=== PATIENT | female | born 1950 | race Caucasian/White ===

== ENCOUNTER 2025-01-08 17:21 | Emergency (ER) | payer MEDICARE, OTHER, SELFPAY ==
[2025-01-08] VITALS (12 sets, daily range): BP systolic 114–161; BP diastolic 58–98; PULSE 70–158; RESP 12–24; TEMP 36.8–37.2; O2SAT 94–98; BMI 26.4
--- NOTE | 2025-01-08 17:33 | EKG12_ITS ---
Test Reason : PALPITATIONS Blood Pressure : */* mmHG Vent. Rate : 154 BPM Atrial Rate : * BPM P-R Int : * ms QRS Dur : 68 ms QT Int : 278 ms P-R-T Axes : * 45 48 degrees QTcB Int : 445 ms Critical Test Result: High HR Supraventricular tachycardia Nonspecific ST abnormality Abnormal ECG Confirmed by YUNIER LYNN, DERRICK ([id number]), writer editor KEV RAM ([id number] on 01/10/2025 11:33:58 AM Referred By: Confirmed By: DERRICK FAYE MD
--- NOTE | 2025-01-08 17:37 | EX.ED.DYSGE1 ---
HPI History of Present Illness Chief Complaint: Palpitations Informant: patient Narrative Narrative: Presents via private vehicle with palpitations 90 minutes ago. Reports was at [facility] felt symptoms she was sweaty. She moved here from [place] 2 weeks ago. No leg swelling or cramping. No chest pains no dyspnea. With denies lightheaded symptoms. Reports history of both SVT and A-fib in the past she had 3 ablations last time in 2012. She states she was never on blood thinners for her A-fib. She was previously on atenolol. Currently not taking any medications. No cough no recent vomiting or diarrhea no urinary symptoms. Reports been doing a lot of moving around. Denies history of blood clots. Reports history of CLL baseline white cells 11-12. Not currently on any treatment regimens. Prior similar symptoms: Yes PFSH PFS Medical History Afib CLL (chronic lymphocytic leukemia) Home Medications ?Medication ?Instructions ?Recorded ?Last Taken ?Type metoprolol succinate 25 mg 25 mg PO DAILY #30 tabs 01/08/25 Unknown Rx tablet,extended release 24 hr Allergy/AdvReac Type Severity Reaction Status Date / Time avocado Allergy flushing Verified 01/08/25 18:01 azithromycin Allergy Rash Verified 01/08/25 18:01 Influenza Virus Vaccines Allergy Hives Verified 01/08/25 17:24 (flu vaccine) latex Allergy Hives Verified 01/08/25 17:22 NSAIDS (Non-Steroidal Allergy palpitation Verified 01/08/25 18:01 Anti-Inflamma s soy Allergy Hives Verified 01/08/25 18:01 Histamine H2 Inhibitors AdvReac migraine Verified 01/08/25 18:01 lansoprazole AdvReac migraine Verified 01/08/25 18:01 prednisone AdvReac Other Verified 01/08/25 17:22 Proton Pump Inhibitors AdvReac migraines Verified 01/08/25 18:01 sotalol AdvReac depression, Verified 01/08/25 18:01 fatigue Social History Smoking Status: Never smoker ROS ROS ED Constitutional Constitutional ED: Denies chills, fever(s) or sweats ENT ENT ED: Denies sore throat Cardiovascular Cardiovascular: Reports palpitations and racing heartbeat; Denies chest pain or leg edema Respiratory/Chest Respiratory/Chest: Denies cough, dyspnea or dyspnea on exertion Gastrointestinal Gastrointestinal: Denies abdominal pain, diarrhea, nausea or vomiting Genitourinary Genitourinary ED: Denies dysuria, hematuria or urinary frequency Musculoskeletal Musculoskeletal: Denies back pain, extremity pain or neck pain Integumentary Denies rash or wounds Neurologic Neurologic: Denies headache(s), paresthesias or weakness EXAM Physical Exam Const Vital Signs: 01/08/25 17:22 01/08/25 17:39 01/08/25 17:40 Temperature 98.9 F Temperature Source Oral Pulse Rate 158 H 154 H 154 H Respiratory Rate 20 H 17 18 Blood Pressure 126/84 H 145/98 H Blood Pressure Mean 98 113 Pulse Ox 94 94 95 Oxygen Delivery Method Room Air 01/08/25 17:45 01/08/25 17:54 01/08/25 18:00 Temperature Temperature Source Pulse Rate 150 H 150 H 148 H Respiratory Rate 23 H 24 H 20 H Blood Pressure 153/90 H 161/90 H 127/77 H Blood Pressure Mean 105 109 93 Pulse Ox 95 95 95 Oxygen Delivery Method 01/08/25 18:15 01/08/25 18:30 01/08/25 18:45 Temperature Temperature Source Pulse Rate 138 H 71 70 Respiratory Rate 18 21 H 18 Blood Pressure 136/74 H 139/75 H 125/58 H Blood Pressure Mean 94 91 78 Pulse Ox 95 95 94 Oxygen Delivery Method 01/08/25 19:00 01/08/25 20:00 01/08/25 20:22 Temperature 98.2 F Temperature Source Pulse Rate 74 72 71 Respiratory Rate 18 18 12 Blood Pressure 114/74 150/68 H 149/75 H Blood Pressure Mean 87 95 99 Pulse Ox 96 96 98 Oxygen Delivery Method Room Air Room Air Positive well nourished and well developed General Appearance ED: well developed and NAD HEENT Reports moist mucous membranes normocephalic and atraumatic Eyes General Eye ED: Yes normal appearance of both eyes Neck full ROM Chest Wall Chest: Negative for tenderness Resp normal respiratory effort and normal air movement Effort and Inspection: symmetric chest movement; Negative for respiratory distress Cardio no murmurs Rate: tachycardic Rhythm: abnormal rhythm Peripheral Pulses: pulses 2+ throughout GI normal to inspection, nondistended, normoactive bowel sounds and non-tender Palpation: Negative for guarding or rebound tenderness present Extremity normal to inspection General Extremety ED: Negative for edema or tenderness General Extremity: Negative for edema Neuro oriented x3 and no sensory deficits noted Sensorium / Orientation: awake and alert Skin no rashes or lesions noted and no wounds MDM MDM MDM Narrative Medical decision making narrative: Interventions / MDM: Differential diagnosis: Recurrent atrial fibrillation Diagnosis considered but do not suspect: SVT however diagnostic adenosine noting a flutter A-fib. My EKG interpretation: Narrow complex tachycardia rate of 154, no ST or T wave changes. EKG #2 at 1838: Sinus rhythm rate of 73, no ST changes, isolated T wave version in aVL nonspecific. Imaging independently reviewed and interpreted by myself: 1 view chest x-ray: No acute process also read by radiology. External documents reviewed: N/A Test considered but not ordered:N/A ED course: Patient clinically had tachycardic with irregularly on exam however EKG has a narrow complex tachycardia. She has had a history of SVT discussed possibly slow SVT versus atrial flutter. She has never had adenosine or has been cardioverted. I discussed chemical adenosine attempt with her for she agreed. Labs obtained including D-dimer with her recent travel. 1743: written consent obtained. Risk and benefits. IV fluids, maintain on threat monitoring analyst, AP pads were placed, 6 mg IV adenosine was given monitor sawtooth waves were noted had brief sinus and back to tachycardic rhythm now. More atrial fibrillation heart rate in 150s. After chemical cardioversion, more A-flutter A-fib blood pressure yashira stable. Will give IV Lopressor for rate control. 1830: Status post 2 doses of IV Lopressor reevaluation heart rate in the 70s she appears to be sinus rhythm on the monitor with PACs. Will repeat EKG. Labs had a white count 15.6 she does have history of CLL. TSH normal electrolytes normal. Awaiting results for D-dimer. 1843 patient EKG confirming sinus rhythm. Heart rate in the 70s blood pressure 139 will order for oral metoprolol for continued rate control. 1855: D-dimer 0.58 normal for age. Chest x-ray ordered for evaluation. Heart rate maintaining in the 70s. I discussed with on-call donation worker Dr. Razo, [id number] Vascor is 2, he does recommend anticoagulants. This was discussed with the patient with her CLL she does not want to be on this. She understands her risks for recurrent symptoms and stroke. She is willing to take aspirin. This was secondary option for baby aspirin per cardiology. He recommends event monitor outpatient. Urine negative for infection chest x-ray negative. Heart rate remains sinus rhythm. Patient referred to cardiology outpatient evaluation and outpatient Holter monitor. Return precaution discussed. All questions were answered. Re-evaluation: stable Disposition discussed with patient/family/significant other: Patient and family cardiology Case discussed with consulting clinician: N/A This note was generated with Zattoo dictation software. It may contain incorrect words, spelling, and punctuation that were not noted in checking the note before signing. Lab Data Attestation: I reviewed the patient's lab results. Labs: Laboratory Results - last 24 hr 01/08/25 01/08/25 17:35 19:11 WBC 15.6 H RBC 4.77 Hgb 14.2 Hct 42.7 MCV 89.5 MCH 29.8 MCHC 33.3 RDW Std Deviation 43.1 RDW Coeff of Chace 13.2 Plt Count 291 MPV 9.9 Immature Gran % (Auto) 0.400 Neut % (Auto) 46.6 L Lymph % (Auto) 46.4 H [place] % (Auto) 4.6 Eos % (Auto) 1.6 Baso % (Auto) 0.4 Absolute Neuts (auto) 7.3 Absolute Lymphs (auto) 7.24 H Nucleated RBC % 0 Differential Comment SCANNED Platelet Estimate ADEQUATE PT 12.4 INR 0.9 APTT 22.7 L D-Dimer Quant (PE/DVT) 0.58 H* Sodium 142 Potassium 3.8 Chloride 104 Carbon Dioxide 23.9 Anion Gap 14 BUN 21 H Creatinine 0.96 Estim Creat Clear Calc 50.76 Est GFR (MDRD) Non-Af 63 BUN/Creatinine Ratio 21.8 H Glucose 123 H Calcium 10.1 TSH 0.737 Urine Color Yellow Urine Clarity Clear Urine pH 5.0 Ur Specific [place] 1.025 Urine Protein 15 H Urine Glucose (UA) Normal Urine Ketones Negative Urine Occult Blood 10 H Urine Nitrite Negative Urine Bilirubin Negative Urine Urobilinogen Normal Ur Leukocyte Esterase 25 H Urine RBC 0-5 SEEN Urine WBC 5-10 SEEN Ur Squamous Epith Cells 0-5 SEEN Ur Transition Epith Cell 0-5 SEEN Urine Bacteria 0 SEEN Hyaline Casts 0-5 SEEN Urine Mucus 0 SEEN Radiography Diagnostic Testing: Clinical Impression(s) from Imaging Studies Chest X-Ray 01/08/25 19:17 IMPRESSION: No acute cardiopulmonary abnormality. Reading Location: [id number] Discharge Plan Triage Chief Complaint: Palpitations ED Provider: Hayder Roche Dx/Rx/DC Orders Clinical Impression: Atrial fibrillation and flutter, Palpitation, Hx of chronic lymphocytic leukemia Instructions: ED AFIB Prescriptions: New metoprolol succinate 25 mg tablet extended release 24 hr 25 mg PO DAILY Qty: 30 0RF Primary Care Provider: Care Physician,No Primary Referrals: James Mcgowan MD [Med Staff - Active Staff] - 1 Week NOT,DEFINED [Non-Staff] - Activity Restrictions/Additional Instructions: He had recurrent atrial flutter/fibrillation you converted after IV Lopressor. You declined stronger anticoagulants. You understand stroke risk. Discussed with cardiology Dr. Razo, take baby aspirin 81 mg daily. Take metoprolol daily. Follow-up with cardiology office for Holter monitor and reevaluation. You develop recurrent symptoms, return to ED for reevaluation. Print Language: Maltese Disposition Disposition: Home, Self Care Discharge Date/Time: 01/08/25 20:27
--- NOTE | 2025-01-08 17:38 | ED.RN ---
Pt states she I am allergic to all antibiotics except one, but I do not have the list of them with me.
[2025-01-08] MEDS: Adenosine 6 MG/2 ML Syringe IV (17:42)
[2025-01-08 17:45] LABS: Hematocrit 42.7 % (37-47); Hemoglobin 14.2 g/dL (12.0-15.0); Immature Granulocytes Count 0.060 X10^3/uL (0.0-0.0); Mean Corp Hgb Conc 33.3 g/dL (32-36); Mean Corpuscular Volume 89.5 fL (81-99); Mean Platelet Vol. 9.9 fl (6.2-12.0); NRBC Flagged by Analyzer 0 % (0-5); POSITIVE DIFFERENTIAL YES; POSITIVE MORPHOLOGY YES; Platelet Count 291 K/mm3 (150-450); RBC Distribution Width CV 13.2 % (11.6-14.6); RBC Distribution Width SD 43.1 fl (35.1-43.9); Red Blood Count 4.77 M/mm3 (4.2-5.4); White Blood Count 15.6 K/mm3 (4.4-11.0)
[2025-01-08 17:50] LABS: Differential Indicated SCAN CRITERIA MET
[2025-01-08] MEDS: 0.9% Normal Saline (1000mL) 1,000 ML 15 ML IV (17:54)
[2025-01-08 18:27] LABS: Anion Gap 14 (5-15); BUN 21 mg/dL (4-19); BUN/Creat Ratio 21.8 RATIO (10-20); Calcium,Total 10.1 mg/dL (7.6-11.0); Carbon Dioxide 23.9 mmol/L (21.0-32.0); Chloride 104 mmol/L (98-108); Estimated Creatinine Clearance 50.76 ml/min (50-250); Glucose 123 mg/dL (70-99); Potassium 3.8 mmol/L (3.3-5.1)
--- NOTE | 2025-01-08 18:31 | EKG12_ITS ---
Test Reason : RHYTHM CONVERSION Blood Pressure : */* mmHG Vent. Rate : 73 BPM Atrial Rate : 73 BPM P-R Int : 182 ms QRS Dur : 70 ms QT Int : 380 ms P-R-T Axes : 70 52 66 degrees QTcB Int : 418 ms Normal sinus rhythm Normal ECG Confirmed by YUNIER LYNN, DERRICK ([id number]), publishing editor KEV RAM ([id number]) on 01/10/2025 11:34:08 AM Referred By: TL Confirmed By: DERRICK FAYE MD
[2025-01-08 18:47] LABS: D-Dimer Quantitative (DVT/PE) 0.58 FEU/ug/m (0.27-0.49)
[2025-01-08 18:50] LABS: Prothrombin Time (Protime)PT. 12.4 SECONDS (11.7-14.9)
[2025-01-08 18:51] LABS: Partial Thromboplast Time 22.7 Seconds (24.1-36.2)
[2025-01-08 19:05] LABS: Differential Comment SCANNED
[2025-01-08 19:17] LABS: Mucous, Urine 0 SEEN /hpf (<or=2+)
--- NOTE | 2025-01-08 19:17 | RAD_ITS ---
PROCEDURE: CHEST 1 VIEW (PORTABLE) 01/08/2025 REASON FOR EXAM: PALPITATIONS TECHNIQUE: Frontal view of the chest. COMPARISON: None FINDINGS: Hardware: None Heart: The heart size is normal. Lungs: No focal consolidation or pleural effusion. Bones: Unremarkable Cholecystectomy clips in the right upper quadrant of the abdomen. RAD/Chest 1 View (Portable) IMPRESSION: No acute cardiopulmonary abnormality. Reading Location: [facility]
[2025-01-08 19:30] LABS: Color, Urine Yellow (Yellow); Glucose, Dipstick Normal (Normal); Ketone-Dipstick Negative (Negative); Leukocyte Esterase-Dipstick 25 /ul (Negative); Nitrite-Dipstick Negative (Negative); Occult Blood-Urine 10 /ul (Negative); Protein-Dipstick 15 mg/dl (Negative); Specific Gravity, Urine 1.025 (1.002-1.030); Urine Bilirubin Dipstick Negative (Negative)
[2025-01-08] MEDS: Metoprolol(XL)Succ 25 MG Tablet PO (19:42)
[2025-01-08 19:46] LABS: Red Blood Cells-Urine 0-5 SEEN /hpf (0-5); Squamous Epithelial Cells - UA 0-5 SEEN /hpf (5-10); Transitional Epithelial - Ur 0-5 SEEN /hpf (0-5)
--- NOTE | 2025-01-08 20:25 | CM.ED ---
Social Work Date of referral: 01/08/25 Reason for referral: No Primary Care Physician (PCP) on file Referred by: Social Work Identification Patient provided consent to Social Work visit. Patient stated she and her just moved back into town and patient has not yet gotten re-established with a PCP. Cosmetic Chemist provided patient with a handout for the [facility] which patient verbalized appreciation for. Jerrica Atkinson, MIXER OPERATOR [employer], [employer] LA[employer]CH COMMANDER
== END 2025-01-08 20:27 | disposition home or self-care (01) ==
PROVIDERS: Emergency Provider Emergency Medicine; Visit Provider Emergency Medicine
DX: I48.91 Unspecified atrial fibrillation (principal); C91.10 Chronic lymphocytic leukemia of B-cell type not having achieved remission; I48.92 Unspecified atrial flutter; I49.1 Atrial premature depolarization; Z53.20 Procedure and treatment not carried out because of patient's decision for unspecified reasons; Z79.899 Other long term (current) drug therapy; Z98.890 Other specified postprocedural states
CPT/HCPCS: 71045; 80048; 81001; 84443; 85025; 85379; 85610; 85730; 93005; 96361; 96374; 96375; 99285; A4216; J0153